=== PATIENT | female | born 2000 | race American Indian/Alaskan Native ===

== ENCOUNTER 2021-04-26 02:53 | Inpatient (IN) | payer MEDICAID ==
[2021-04-26] MEDS ORDERED: fentaNYL 100 MCG/2 ML INJ IV ONE (03:40)
[2021-04-26] MEDS ORDERED: LACTATED RINGERS 1,000 ML ONE (03:57)
[2021-04-26] MEDS ORDERED: miSOPROStol 200 MCG TAB PR PRN (04:59)
[2021-04-26] MEDS ORDERED: LOPERAMIDE 2 MG CAP PO PRN (04:59)
[2021-04-26] MEDS ORDERED: ePHEDrine SULFATE 50 MG/1 ML INJ IV PRN ×3 (04:59→09:36)
[2021-04-26] MEDS ORDERED: CARBOPROST TROMETHAMINE 250 MCG/1 ML INJ IM PRN (04:59)
[2021-04-26] MEDS ORDERED: METHYLERGONOVINE MALEATE 0.2 MG/ML VIAL IM PRN (04:59)
[2021-04-26] MEDS ORDERED: ONDANSETRON 4 MG/2 ML INJ IV PRN ×2 (04:59→08:30)
[2021-04-26] MEDS ORDERED: BUTORPHANOL 2 MG/1 ML INJ IV PRN (04:59)
[2021-04-26] MEDS ORDERED: TERBUTALINE 1 MG/1 ML INJ SUB-Q PRN (04:59)
[2021-04-26] MEDS ORDERED: OXYTOCIN 10 UNIT/1 ML INJ IM PRN (04:59)
[2021-04-26] MEDS ORDERED: MINERAL OIL 30 ML ORAL LIQD PO PRN (04:59)
[2021-04-26] MEDS ORDERED: LIDOCAINE (2%) 20 MG/1 ML VIAL 20 ML MDV INFILTRATI ONE (04:59)
[2021-04-26] MEDS ORDERED: OXYTOCIN DRIP 30 UNITS/500 ML BAG IV SCH ×2 (05:00→12:00)
[2021-04-26] MEDS ORDERED: LACTATED RINGERS 1,000 ML IV SCH (05:00)
[2021-04-26 06:24] LABS: Hematocrit 20.5 % (30.3-42.9); Hemoglobin 6.3 gm/dl (10.1-14.3); Mean Corpuscular HGB Conc 31 % (30-34); Platelet Count 271 K/mm3 (140-440); Red Blood Count 3.42 M/mm3 (3.65-5.03)
[2021-04-26] MEDS: fentaNYL 100 MCG/2 ML INJ IV PRN ×2 (06:24→07:15)
[2021-04-26 06:26] LABS: Mean Corpuscular Volume 60 fl (79-97); Red Cell Distribution Width 21.7 % (13.2-15.2)
[2021-04-26] MEDS ORDERED: AMPICILLIN/NS 2 GM/100 ML 2 GM/100 ML BAG IV ONE (06:34)
--- NOTE | 2021-04-26 08:24 | Anesthesia Consultation ---
Anesthesia Consult and Med Hx Date of service: 04/26/21 - Airway Anesthetic Teeth Evaluation: Good ROM Head & Neck: Adequate Mental/Hyoid Distance: Adequate Mallampati Class: Class III Intubation Access Assessment: Possibly Difficult - Pulmonary Exam CTA: Yes - Cardiac Exam Cardiac Exam: RRR - Pre-Operative Health Status ASA Pre-Surgery Classification: ASA2 Proposed Anesthetic Plan: Epidural, Spinal - Pulmonary Hx Smoking: No Hx Asthma: No Hx Sleep Apnea: No - Cardiovascular System Hx Hypertension: No Hx Heart Attack/AMI: No Hx Angina: No - Central Nervous System Hx Seizures: No - Gastrointestinal Hx Gastroesophageal Reflux Disease: No - Endocrine Hx Renal Disease: No Hx Liver Disease: No Hx Insulin Dependent Diabetes: No Hx Non-Insulin Dependent Diabetes: No - Other Systems Hx Alcohol Use: No Hx Obesity: Yes
--- NOTE | 2021-04-26 08:26 | Progress Note ---
Labor Epidural - Labor Epidural Start Time: 08:00 Stop Time: 08:25 Performed by:: SHARMIN LEVINE (Brisa Kwok [facility]) Procedure: Patient is requesting combined spinal epidural for labor and pain. H&P, labs were reviewed. All questions and concerns were answered. Informed consent was obtained. Timeout performed. Patient in sitting position on side of bed. Sterile prep and drape was performed. 3 mL 1% lidocaine skin wheal at L [3]-L [4]. 18-gauge lucy epidural needle advanced to [id number] using air technique, [7cm]. Unable to thread catheter. 3mL 1% lidocaine skin wheal at L [2]-L [3]. 18-gauge lucy epidural needle advanced to [id number] using air technique, [7cm]. 27-gauge spinal needle advanced, positive free-flowing CSF. Spinal dose of [Marcaine 4mg]. Epidural catheter advanced to [12] cm. [negative] Aspiration, [negative] test dose. Sterile dressing applied. Patient tolerated procedure well.
[2021-04-26] MEDS ORDERED: LACTATED RINGERS 250 ML IV SOLN IV ONE (08:30)
[2021-04-26] MEDS ORDERED: NALOXONE 2 MG/2 ML INJ IV PRN (08:30)
[2021-04-26] MEDS ORDERED: diphenhydrAMINE 50 MG/ML VIAL IV PRN (08:30)
[2021-04-26] MEDS ORDERED: NalbUPHINE 10 MG/1 ML INJ IV PRN (08:30)
[2021-04-26] MEDS ORDERED: FAMOTIDINE 20 MG/2 ML INJ IV ONE ×2 (10:00→10:23)
[2021-04-26] MEDS ORDERED: METOCLOPRAMIDE 10 MG/2 ML INJ IV ONE (10:00)
[2021-04-26] MEDS ORDERED: ceFAZolin/Water 2 GM/20 ML 2 GM/20 ML SYRINGE IV NR (10:00)
[2021-04-26] MEDS ORDERED: BICITRA ORAL LIQD 30ML PO ONE (10:00)
[2021-04-26] MEDS ORDERED: fentaNYL-BUPIV 2 MCG/ML-0.125% 200 MCG/100 ML BAG EPIDURAL SCH (10:00)
[2021-04-26] MEDS ORDERED: BICITRA ORAL LIQD 30ML ONE (10:23)
[2021-04-26] MEDS ORDERED: ceFAZolin/Water 2 GM/20 ML 2 GM/20 ML SYRINGE IV ONE (10:23)
[2021-04-26] MEDS ORDERED: METOCLOPRAMIDE 10 MG/2 ML INJ ONE (10:23)
[2021-04-26] MEDS ORDERED: SODIUM CHLORIDE 0.9% 500 ML 500 ML IV SCH (11:00)
--- NOTE | 2021-04-26 11:19 | History and Physical Report ---
History of Present Illness Date of examination: 04/26/21 Date of admission: 04/26/21 03:39 Chief complaint: Contractions History of present illness: 20-year-old G1, P0 at 40+2 weeks who presents in active labor. The patient initiated care at 15 weeks estimated gestational age. Her course is complicated by severe iron deficiency anemia. GBS is negative Past History Past Medical History: other (Anemia) Past Surgical History: appendectomy Social history: single - Obstetrical History Expected Date of Delivery: 04/24/21 Actual Gestation: 40 Week(s) 2 Day(s) : 1 Para: 0 Hx # Term Pregnancies: 0 Number of Pregnancies: 0 Spontaneous Abortions: 0 Induced : 0 Number of Living Children: 0 Medications and Allergies Allergies Allergy/AdvReac Type Severity Reaction Status Date / Time No Known Allergies Allergy Verified 04/26/21 03:42 Home Medications Medication Instructions Recorded Confirmed Last Taken Type No Known Home Medications [No 04/26/21 04/26/21 Unknown History Reported Home Medications] Active Meds: Active Medications Butorphanol Tartrate (Butorphanol 2 Mg/1 Ml Inj) 1 mg IV Q2H PRN PRN Reason: Pain, Moderate(4-6) LABOR PAIN Last Admin: 04/26/21 05:10 Dose: 1 mg Documented by: Carboprost Tromethamine (Carboprost Tromethamine 250 Mcg/1 Ml Inj) 250 mcg IM ONCE PRN PRN Reason: Uterine Bleeding Diphenhydramine HCl (Diphenhydramine 50 Mg/Ml Vial) 12.5 mg IV Q2H PRN PRN Reason: Itching Ephedrine Sulfate (Ephedrine Sulfate 50 Mg/1 Ml Inj) 10 mg IV Q2M PRN PRN Reason: Hypotension Fentanyl (Fentanyl 100 Mcg/2 Ml Inj) 100 mcg IV Q2H PRN PRN Reason: Pain,Severe (7-10) LABOR PAIN Last Admin: 04/26/21 07:15 Dose: 100 mcg Documented by: Oxytocin/Sodium Chloride (Pitocin/Ns 30 Unit/500ml) 30 units in 500 mls @ 2 mls/hr IV TITR KYUNG; Protocol Lactated Ringer's (Lactated Ringers) 1,000 mls @ 125 mls/hr IV DIRECT KYUNG Last Admin: 04/26/21 06:25 Dose: 125 mls/hr Documented by: Fentanyl/Bupivacaine/Sodium Chlor (Fentanyl-Bupiv 2 Mcg/Ml-0.125%) 200 mcg in 100 mls @ 12 mls/hr EPIDURAL TITR KYUNG; Protocol Last Admin: 04/26/21 10:01 Dose: 12 mls/hr Documented by: Sodium Chloride (Nacl 0.9% 500 Ml) 500 mls @ 0 mls/hr IV ONCE KYUNG Stop: 04/26/21 18:00 Loperamide HCl (Loperamide 2 Mg Cap) 2 mg PO ONCE PRN PRN Reason: give with Hemabate Methylergonovine Maleate (Methylergonovine Maleate 0.2 Mg/Ml Vial) 0.2 mg IM ONCE PRN PRN Reason: Uterine Bleeding Mineral Oil (Mineral Oil 30 Ml Oral Liqd) 30 ml PO QHS PRN PRN Reason: Constipation Misoprostol (Misoprostol 200 Mcg Tab) 800 mcg NJ ONCE PRN PRN Reason: Uterine Bleeding Nalbuphine HCl (Nalbuphine 10 Mg/1 Ml Inj) 2.5 mg IV Q2H PRN PRN Reason: Itching Naloxone HCl (Naloxone 2 Mg/2 Ml Inj) 0.2 mg IV Q5M PRN PRN Reason: Respiratory sedation Ondansetron HCl (Ondansetron 4 Mg/2 Ml Inj) 4 mg IV Q8H PRN PRN Reason: Nausea And Vomiting Oxytocin (Oxytocin 10 Unit/1 Ml Inj) 10 unit IM ONCE PRN PRN Reason: Uterine Bleeding Terbutaline Sulfate (Terbutaline 1 Mg/1 Ml Inj) 0.25 mg SUB-Q ONCE PRN PRN Reason: Hyperstimulation/Hypertonicity Review of Systems All systems: negative Genitourinary: pelvic pain, contractions - Vital Signs Vital signs: Vital Signs Pulse BP 118 H 138/92 04/26/21 03:11 04/26/21 03:11 Temp Pulse Resp BP Pulse Ox 98.0 F 53 L 18 120/55 94 04/26/21 03:18 04/26/21 10:27 04/26/21 07:15 04/26/21 10:03 04/26/21 10:27 - Physical Exam Breasts: Positive: deferred Cardiovascular: Regular rate Lungs: Positive: Clear to auscultation Abdomen: Positive: normal appearance Results Result Diagrams: 04/26/21 05:15 Abnormal lab results 04/26/21 04/26/21 Range/Units 05:15 05:15 WBC 15.6 H (4.5-11.0) K/mm3 RBC 3.42 L (3.65-5.03) M/mm3 Hgb 6.3 L (10.1-14.3) gm/dl Hct 20.5 L (30.3-42.9) % MCV 60 L (79-97) fl MCH 19 L (28-32) pg RDW 21.7 H (13.2-15.2) % Crossmatch See Detail All other labs normal. Assessment and Plan - Patient Problems (1) Iron deficiency anemia secondary to blood loss (chronic) Current Visit: Yes Status: Acute Plan to address problem: Admit to labor and delivery (2) Active labor at term Current Visit: Yes Status: Acute
--- NOTE | 2021-04-26 11:21 | Operative Report ---
Operative Report Operative Report: Date of surgery: April 26, 2021 Preoperative diagnosis: at 40+2 weeks; nonreassuring heart rate tracing; severe iron deficiency anemia Postoperative diagnosis: Same as above Procedure: Primary low transverse delivery Surgeon: Batsheva Thornton M.D.[] Anesthesia: Regional Estimated blood loss: 300 mL Packed red blood cells: 1 unit IV fluids: 1500 mL Urine output: 150 mL Findings: Liveborn male infant with Apgars of 8 and 9 weight 7 pounds 6 ounces Indications: 20-year-old G1, P0 at 40+2 weeks who presented in active labor. The patient's intrapartum course was complicated by nonreassuring heart rate tracing. The patient had progressed to 9 cm however developed repetitive late decelerations. She was counseled for primary . The patient was transfused 1 unit packed red blood cells intraoperatively. Procedure: The patient was taken to the operating room and given regional anesthesia without complication. She was prepped and draped in a normal sterile fashion. A Pfannenstiel skin incision was made down to layer the fascia which was nicked in the midline extended laterally with the Bovie cautery. The superior aspect of the rectus fascia was grasped with Laureen clamps x2 and the rectus muscles off sharply. This was done in inferior fashion as well. The rectus muscle midline and peritoneum entered bluntly. An Dominick retractor was then inserted. A bladder blade was placed. The vesicouterine peritoneum was then entered sharply with Metzenbaum scissors. A bladder flap was created digitally. A low transverse uterine incision was then made and extended digitally. There was clear fluid upon entry into the uterine cavity. The head was delivered through the incision with fundal pressure. The cord was clamped and cut x2 and was passed off to pediatrics. The placenta was then manually extracted. The uterus was then exteriorized and cleared of clots and debris. The uterine incision was then closed in a running locked fashion with 0 Vicryl additional imbricating stitch was applied for 2 layer closure. The serosa was then reapproximated with 3-0 Vicryl. The posterior cul-de-sac was then copiously irrigated. The uterus was replaced back into the abdomen and pelvis were the gutters were then irrigated. The Dominick retractor was then removed. The peritoneum was then reapproximated with 3-0 Vicryl incorporating the rectus muscle. The fascia was then closed with 0 Vicryl in a running fashion. The skin was then reapproximated with 3-0 Monocryl on a Peter needle subcuticular fashion. Steri-Strips to place across the incision and a Crede procedures performed at the end of the surgery. A pressure dressing was applied to the incision. The surgery productive of a liveborn male infant with Apgars of 8 and 9 weight 7 pounds 6 ounces. The patient was taken to the recovery room in stable condition. All sponge laps and needle counts correct x2.
[2021-04-26] MEDS ORDERED: LIDOCAINE 2%/EPINEPHRINE 1:200,000 VIAL (20 ML) INFILTRATI ONE (11:22)
--- NOTE | 2021-04-26 11:22 | Procedure Note ---
OB Delivery Note - Delivery Date of Delivery: 04/26/21 Surgeon: OZIEL LOW Estimated blood loss: 300cc - Section Preop diagnosis: nonreassuring FHR tracing Postop diagnosis: same section procedure: section, primary low transverse Disposition: PACU Complications: none - Infant A at 1 minute: 8 at 5 minutes: 9 Infant Gender: Male (Weight 7 pounds 6 ounces)
[2021-04-26] MEDS ORDERED: dexAMETHasone 20 MG/5 ML VIAL ONE (11:23)
[2021-04-26] MEDS ORDERED: BUPIVACAINE/PF (0.5%) 5 MG/1 ML 30 ML VIAL INFILTRATI ONE (11:23)
[2021-04-26] MEDS ORDERED: WITCH HAZEL/ GLYCERIN PAD TP PRN (12:00)
[2021-04-26] MEDS ORDERED: ACETAMINOPHEN 325 MG TAB PO PRN (12:00)
[2021-04-26] MEDS ORDERED: D5W/LACTATED RINGERS 1,000 ML IV SCH (12:00)
[2021-04-26] MEDS ORDERED: NALOXONE 0.4 MG/1 ML INJ IV PRN (12:00)
[2021-04-26] MEDS ORDERED: LANOLIN/ZINC/DIMETHICONE (LANSINOH) 7 GM TP PRN (12:00)
[2021-04-26] MEDS: MORPHINE 4 MG/1 ML INJ IV PRN ×2 (14:34→19:55)
[2021-04-26] MEDS: KETOROLAC 30 MG/1 ML INJ IV PRN (16:01)
[2021-04-26] MEDS ORDERED: MAGNESIUM HYDROXIDE (MOM) ORAL LIQD UDC PO PRN (22:00)
[2021-04-27] MEDS: KETOROLAC 30 MG/1 ML INJ IV PRN (00:10)
[2021-04-27 00:31] LABS: Hematocrit 23.8 % (30.3-42.9); Hemoglobin 7.4 gm/dl (10.1-14.3)
[2021-04-27] MEDS: oxyCODONE /ACETAMINOPHEN 5-325MG TAB PO PRN ×4 (05:59→20:40)
[2021-04-27] MEDS ORDERED: IRON DEXTRAN COMPLEX 100 MG/2 ML INJ IM ONE (13:00)
--- NOTE | 2021-04-27 13:37 | Progress Note ---
Assessment and Plan - Patient Problems (1) Status post primary low transverse section Current Visit: Yes Status: Acute Plan to address problem: Continue routine PP orders Keep dressing clean and dry, remove on POD#2 Anticipate d/c home in 24-48 hrs if stable (2) Anemia Current Visit: Yes Status: Acute Qualifiers: Anemia type: iron deficiency Plan to address problem: Asymptomatic Infed 100mg IM x 1 dose Increase iron rich foods into diet Continue daily oral iron supplementation as directed Subjective - Subjective Date of service: 04/27/21 Principal diagnosis: S/P primary C/S; POD#1 Interval history: 20-year-old G1, P0 at 40+2 weeks who presents in active labor. The patient initiated care at 15 weeks estimated gestational age. Her course is complicated by severe iron deficiency anemia. GBS is negative The patient's intrapartum course was complicated by nonreassuring heart rate tracing. The patient had progressed to 9 cm however developed repetitive late decelerations. She was counseled for primary . The patient was transfused 1 unit packed red blood cells intraoperatively. Patient reports: appetite normal, voiding normally, pain well controlled (with medications), flatus, ambulating normally, no bowel movement : doing well, bottle feeding Objective - Vital Signs Latest vital signs: Vital Signs Temp Pulse Resp BP Pulse Ox 04/27/21 08:24 98.5 F 102 H 20 118/64 98 04/27/21 05:59 12 04/27/21 00:54 98.2 F 102 H 20 113/59 99 04/27/21 00:10 12 04/26/21 19:55 12 04/26/21 16:29 97.8 F 90 20 134/67 99 Intake and Output 04/26/21 04/27/21 04/27/21 23:59 07:59 15:59 Intake Total 120 240 120 Output Total 900 200 Balance -780 40 120 Intake: Oral 120 240 120 Output: Urine 900 200 Indwelling Catheter 900 Void 200 Other: Total, Intake Amount 120 240 120 Total, Output Amount 900 200 # Voids Void 1 - Exam Breasts: Present: normal Cardiovascular: Present: Regular rate Lungs: Present: Normal air movement Abdomen: Present: soft, tenderness Uterus: Present: firm, fundal height below umbilicus (U-1, full bladder noted) Extremities: Present: normal Deep Tendon Reflex Grade: Normal +2 Incision: Present: dressed (no shadow drainage or bleeding noted) - Labs Labs: Abnormal lab results 04/26/21 04/26/21 Range/Units 05:15 23:25 Hgb 7.4 L (10.1-14.3) gm/dl Hct 23.8 L (30.3-42.9) % Crossmatch See Detail
--- NOTE | 2021-04-27 14:44 | Post Anesthesia Evaluation ---
- Post Anesthesia Evaluation Patient Participated: Yes Airway Patent: Yes Stable Respiratory Function: Yes Nausea/Vomiting: No Temp > 96.8F: Yes Pain Manageable: Yes Adequeate Hydration: Yes Anesthesia Complications: No Block Receding Appropriately: Yes Patient on Ventilator: No
[2021-04-27] MEDS: IBUPROFEN 600 MG TAB PO PRN (20:39)
[2021-04-27] MEDS: FERROUS SULFATE 325 MG TAB PO SCH (21:39)
[2021-04-28] MEDS: oxyCODONE /ACETAMINOPHEN 5-325MG TAB PO PRN ×4 (02:07→22:11)
[2021-04-28] MEDS: FERROUS SULFATE 325 MG TAB PO SCH ×2 (11:57→22:11)
--- NOTE | 2021-04-28 13:38 | Progress Note ---
Assessment and Plan - Patient Problems (1) Status post primary low transverse section Current Visit: Yes Status: Acute Plan to address problem: Continue routine PP orders Keep dressing clean and dry, remove today after showering Anticipate d/c home in 24 hrs if stable (2) Anemia Current Visit: Yes Status: Acute Qualifiers: Anemia type: iron deficiency Plan to address problem: Asymptomatic Increase iron rich foods into diet Continue daily oral iron supplementation as directed Subjective - Subjective Date of service: 04/28/21 Principal diagnosis: S/P primary C/S; POD#2 Interval history: 20-year-old G1, P0 at 40+2 weeks who presents in active labor. The patient initiated care at 15 weeks estimated gestational age. Her course is complicated by severe iron deficiency anemia. GBS is negative The patient's intrapartum course was complicated by nonreassuring heart rate tracing. The patient had progressed to 9 cm however developed repetitive late decelerations. She was counseled for primary . The patient was transfused 1 unit packed red blood cells intraoperatively. Patient reports: appetite normal, voiding normally, pain well controlled, flatus, ambulating normally : doing well, bottle feeding Objective - Vital Signs Latest vital signs: Vital Signs Temp Pulse Resp BP Pulse Ox 04/28/21 08:38 98.0 F 93 H 18 139/84 99 04/28/21 00:12 98.9 F 98 H 20 117/63 96 04/27/21 15:49 98.7 F 106 H 18 112/76 98 Intake and Output 04/27/21 04/28/21 04/28/21 23:59 07:59 15:59 Intake Total 1080 480 240 Balance 1080 480 240 Intake: Oral 720 480 240 Intake, Free Water 360 Other: Total, Intake Amount 240 240 240 # Voids Void 1 1 1 - Exam Breasts: Present: normal Cardiovascular: Present: Regular rate Lungs: Present: Normal air movement Abdomen: Present: soft, tenderness Uterus: Present: firm, fundal height below umbilicus (U-) Extremities: Present: normal Deep Tendon Reflex Grade: Normal +2 Incision: Present: dressed (no shadow drainage or bleeding noted)
[2021-04-29] MEDS: oxyCODONE /ACETAMINOPHEN 5-325MG TAB PO PRN ×2 (06:06→10:04)
[2021-04-29] MEDS: FERROUS SULFATE 325 MG TAB PO SCH (10:02)
[2021-04-29] MEDS: IBUPROFEN 600 MG TAB PO PRN (12:35)
--- NOTE | 2021-04-29 13:14 | Progress Note ---
Assessment and Plan A: POD#3 s/p primary at term Obesity Acute on chronic anemia P: Routine postop care Discharge today with follow up in 2 wks for incision check Subjective - Subjective Date of service: 04/29/21 Principal diagnosis: S/P primary C/S; POD#3 Interval history: Pt without complaints. Hoping to go home today. Patient reports: appetite normal, voiding normally, pain well controlled, flatus, bowel movement, ambulating normally, no dizzy ambulation : doing well Objective - Vital Signs Latest vital signs: Vital Signs Temp Pulse Resp BP BP Pulse Ox 04/29/21 09:34 98.1 F 96 H 18 125/77 04/29/21 07:06 18 04/29/21 06:06 18 04/29/21 00:30 98.6 F 74 16 121/78 04/28/21 23:11 18 04/28/21 22:11 18 04/28/21 18:03 97.8 F 96 H 18 130/77 96 Intake and Output 04/28/21 04/29/21 04/29/21 22:59 06:59 14:59 Intake Total 1080 500 320 Balance 1080 500 320 Intake: Oral 480 200 320 Intake, Free Water 600 300 Other: Total, Intake Amount 480 200 320 # Voids Void 3 1 1 - Exam Breasts: Present: deferred Abdomen: Present: soft (obese ) Uterus: Present: fundal height at umbilicus Extremities: Present: edema (1+ ) Incision: Present: intact
--- NOTE | 2021-04-29 13:15 | Discharge Summary ---
Providers - Providers Date of Admission: 04/26/21 11:22 Date of discharge: 04/29/21 Attending physician: OZIEL LOW Primary care physician: OZIEL LOW Hospitalization Reason for admission: active labor Delivery: Procedure: section, primary low transverse Procedure details: Please see operative report Incision: intact Other procedures: none complications: none Discharge diagnosis: IUP at term delivered [place] baby: male Hospital course: The patient was admitted in active labor and went on to have a primary section which he tolerated well. She was noted to have severe chronic anemia on admission and was transfused 1 unit of packed red blood cells intraoperatively. The remainder of her postoperative course was uncomplicated and she met discharge criteria on postoperative day #3. She will follow-up in the office in 2 weeks for an incision check. Condition at discharge: Stable Disposition: TO HOME OR SELFCARE - Discharge Diagnoses (1) Term of male Status: Acute (2) Active labor at term Status: Acute (3) Anemia Status: Acute Qualifiers: Anemia type: iron deficiency Iron deficiency anemia type: unspecified iron deficiency Qualified Code(s): D50.9 - Iron deficiency anemia, unspecified (4) Iron deficiency anemia secondary to blood loss (chronic) Status: Acute (5) Status post primary low transverse section Status: Acute Plan - Discharge Medications Prescriptions: Docusate Sodium [Colace] 100 mg PO BID PRN #60 capsule PRN Reason: Constipation Ferrous Sulfate [Feosol 325 MG tab] 325 mg PO TID #90 tablet Ibuprofen [Motrin] 800 mg PO Q8HR PRN #30 tablet PRN Reason: Pain, Moderate (4-6) oxyCODONE /ACETAMINOPHEN [Percocet 5/325] 1 tab PO Q6HR PRN #30 tablet PRN Reason: Pain - Provider Discharge Summary Activity: routine, no sex for 6 weeks, no heavy lifting 4 weeks, no strenuous exercise Diet: routine Additional instructions: [] Smoking cessation referral if applicable(refer to patient education folder for contact #) [] Refer to [facility] Booklet Call your doctor immediately for: * Fever > 100.5 * Heavy vaginal bleeding ( >1 pad per hour) * Severe persistent headache * Shortness of breath * Reddened, hot, painful area to leg or breast * Drainage or odor from incision. * Keep incision clean and dry at all times and follow doctor's instructions regarding bathing/showering - Follow up plan Follow up: OZIEL LOW MD [Primary Care Provider] - 6 Weeks (Congratulations! Please call your provider's office to schedule your 6 week follow up appointment. ) Forms: [facility] Discharge Summary
[2021-04-29 15:38] VITALS: BP 135/79
== END 2021-04-29 15:45 | disposition home or self-care (01) | DRG 766 ==
LOC: TRG 02:53 → APU 03:04 → LD 03:39 → TRG 03:39 → OBSVTOIN 11:22 → OB 13:22
PROVIDERS: ADMIT Obstetrics & Gynecology; ATTEND Obstetrics & Gynecology
PROC: 10D00Z1 Extraction of Products of Conception, Low, Open Approach (ICD-10-PCS; principal; 2021-04-26)
PROC: 30233N1 Transfusion of Nonautologous Red Blood Cells into Peripheral Vein, Percutaneous Approach (ICD-10-PCS; 2021-04-26)
DX: O76 Abnormality in fetal heart rate and rhythm complicating labor and delivery (principal); Z3A.40 40 weeks gestation of pregnancy; Z37.0 Single live birth; D50.9 Iron deficiency anemia, unspecified; O99.02 Anemia complicating childbirth; Z20.822 Contact with and (suspected) exposure to COVID-19
CPT/HCPCS: 36415; 59025; 85014; 85018; 85027; 86592; 86850; 86900; 86901; 86920; 96360; 99211; G0378; G0463; J0595; J1100; J1750; J1885; J2270; J2765; J3010; J7120; J7121; P9016; U0003